=== PATIENT | female | born 1955 | race Caucasian/White ===

== ENCOUNTER 2021-06-12 00:36 | Inpatient (IN) ==
[2021-06-12] MEDS ORDERED: IPRATROPIUM/ALBUTEROL 3 ML AMPUL.NEB NEB ONE ×3 (01:32→04:56)
--- NOTE | 2021-06-12 01:35 | Emergency Department Note ---
HPI General Chief complaint: Shortness of Breath/Dyspnea Stated complaint: sob Time Seen by Provider: 06/12/21 00:56 Source: patient Mode of arrival: ambulatory Limitations: no limitations History of Present Illness HPI Narrative: Narrative: 66 yo F w/ h/o COPD, HTN, tobacco abuse p/w SOB. She reports a few days of increasing SOB, constant, worsened w/ exertion, no relation to position. This is accompanied by chills, productive cough, and malaise. Additionally she has had some nausea and diarrhea. She and several of her girl friends have recently all had the same Sx. She denies CP, immobilization, recent surgery. She does have some peripheral edema but states that this is not a new issue for her. She is no t on home O2. Related Data Home Medications Medication Instructions Recorded Confirmed Vitamin B-12 with folic acid PO DAILY 12/28/14 03/21/21 aspirin 81 mg tablet 81 mg PO QDAY 12/28/14 03/21/21 calcium carbonate 600 mg calcium 600 mg PO QDAY tab 12/28/14 03/21/21 (1,500 mg) tablet cholecalciferol (vitamin D3) 50 2,000 unit PO QDAY 12/28/14 03/21/21 mcg (2,000 unit) tablet coenzyme Q10 100 mg capsule 100 mg PO QDAY 12/28/14 03/21/21 fish,bora,flax oils-om3,6,9 #1 PO QDAY 12/28/14 03/21/21 mv,iron,min-folic acid-biotin 1 PO TID 12/28/14 03/21/21 ascorbic acid (vitamin C) 1,000 mg 1 g PO QDAY tab 08/14/19 03/21/21 tablet ascorbic acid 7.5 mg-vit E 7.5 tab PO 08/14/19 03/21/21 unit-biotin 1,250 mcg chewable tablet (Hair,Skin,Nails with Biotin) inositol hexaphosphate PO 08/14/19 03/21/21 lactobacillus combination no.9 4 4,000 mmu cells PO QDAY 08/14/19 03/21/21 billion cell capsule (Adult 50 Plus Probiotic) vit 55-iron fum,bisgly 28 1 tab PO QDAY 08/14/19 03/21/21 mg iron-folic acid 1 mg chew tablet (NataChew (Fe Bis-glycinate)) melatonin 3 mg tablet 6 mg PO QDAY 09/23/19 03/21/21 Previous Rx's Medication Instructions Recorded lisinopril 10 mg tablet 10 mg PO QDAY #90 tab 08/05/19 amitriptyline 100 mg tablet 100 mg PO QHS #90 tab 11/08/20 omeprazole 20 mg capsule,delayed 40 mg PO QDAY #180 cap 12/26/20 release gabapentin 800 mg tablet See Rx Instructions .ROUTE 03/08/21 .COMPLEX #180 tab duloxetine 30 mg capsule,delayed 30 mg PO BID #60 cap 03/21/21 release albuterol sulfate 90 mcg/actuation 2 puff INHALATION Q6H PRN #8.5 g 05/04/21 aerosol inhaler (ProAir HFA) oxycodone 10 mg tablet 10 mg PO Q4H 28 Days #168 tab 05/30/21 carisoprodol 350 mg tablet See Rx Instructions .ROUTE 06/01/21 .COMPLEX #60 tab Allergies Allergy/AdvReac Type Severity Reaction Status Date / Time adhesive tape Allergy Unknown Unknown Verified 03/21/21 13:54 hydromorphone [Hydromorphone] Allergy Unknown Unknown Verified 03/21/21 13:54 morphine Allergy Unknown Unknown Verified 03/21/21 13:54 NSAIDS (Non-Steroidal Allergy Unknown Unknown Verified 03/21/21 13:54 Anti-Inflamma Penicillins Allergy Unknown Unknown Verified 03/21/21 13:54 pentazocine Allergy Unknown Unknown Verified 03/21/21 13:54 Zolpidem Allergy Unknown Unknown Verified 03/21/21 13:54 bees Allergy Unknown Unknown Uncoded 03/21/21 13:54 Review of Systems ROS ROS Narrative: Narrative: All systems ED: reviewed and negative except as stated. [facility] Narrative Patient History Narrative: Narrative: Medical/Surgical/Family History All Active Problems (Updated 06/12/21 @ 07:16 by Arnaldo Cole MD) Acute dyspnea (Acute) Acute exacerbation of chronic obstructive airways disease (Acute) Medicare annual wellness visit, initial (Acute) History of appendectomy (Chronic ~09/12/19) Upper respiratory infection (Acute) Tobacco abuse (Chronic) Chronic pain (Chronic) Alcoholism in recovery (Chronic) Hypertension, essential (Chronic) Asthma (Chronic) Disc disorder of cervical region (Chronic) Cervical pain (neck) (Chronic) Chronic obstructive lung disease (Chronic) Gastric distention (Chronic) History of ileus (Chronic) Foraminal stenosis of lumbar region (Chronic) Pain management contract agreement (Chronic) Vitamin D deficiency (Chronic) Insomnia (Chronic) Depression (Chronic) Acid reflux (Chronic) Small intestine obstruction (Acute ~09/08/19) Back pain (Chronic) Bowel disease (Chronic) Migraine-cluster headache syndrome (Chronic) Chronic joint pain (Chronic) Anemia (Chronic) Medical History Acid reflux Alcoholism in recovery Allergic dermatitis Anemia as a child and after daughter was born Asthma Back pain 2007 Bowel disease 09/2014 Cervical pain (neck) Chronic joint pain Chronic obstructive lung disease Cigarette smoking history Chronic pain Depression Disc disorder of cervical region Foraminal stenosis of lumbar region L3-4, L4-5 Gastric distention 10/14/14 History of ileus 10/14/14 Small intestine Hypertension, essential 2007 Insomnia Medicare annual wellness visit, initial Migraine-cluster headache syndrome 2010 Pain management contract agreement 06/03/14 Pneumonia 05/08, 10/06 Small intestine obstruction (~09/08/19) 2015 Stomach ulcer in her early 's Tobacco abuse Upper respiratory infection Vitamin D deficiency Surgical History H/O neck surgery 08/2009 History of appendectomy (~09/12/19) History of back surgery 2012, 2018 History of intestinal surgery 10/15/2014 for small intestinal blockage Family History Mother Osteoarthritis Diabetes mellitus, Onset Age: 82 Essential hypertension Myocardial Infarction Disorder of thyroid Grandmother-maternal Malignant neoplasm of breast Grandmother Malignant neoplasm of lung, Onset Age: 85 Aunt-paternal Malignant neoplasm of pharynx Father Dementia Sister Migraine Social History Smoking Status: Current every day smoker Alcohol Intake Frequency: former alcohol drinker Exam Narrative Narrative: Narrative: General Limitations: no limitations General appearance: Present alert and in no apparent distress Head Head: Present atraumatic and normocephalic ENT ENT: Present normal oropharynx and mucous membranes moist Chest Chest: Present normal inspection and symmetric chest wall rise Respiratory Respiratory: Present decreased breath sounds; Absent respiratory distress or accessory muscle use Cardiovascular Cardiovascular: Present regular rate, normal rhythm, +S1, +S2 and other (2+ B/L radial pulses); Absent systolic murmur or diastolic murmur Adbominal Abdominal: Present soft and normal bowel sounds; Absent distention or tenderness Extremities Extremities: Present pedal edema (1+ B/L pitting) Neurological Neurological: Present alert and oriented X3 Psychiatric Psychiatric: Present normal affect Skin Skin: Present warm (WNL) and dry Course Vital Signs Vital signs: Vital Signs Temperature 97.9 F 06/12/21 00:40 Pulse Rate 93 H 06/12/21 00:40 Respiratory Rate 20 06/12/21 00:40 Blood Pressure 117/88 06/12/21 00:40 Temperature 97.9 F 06/12/21 00:40 Pulse Rate 87 06/12/21 07:00 Respiratory Rate 12 06/12/21 07:18 Blood Pressure 102/65 06/12/21 07:18 Pulse Oximetry (%) 97 06/12/21 07:00 [facility] MDM Narrative Medical decision making narrative: Narrative: 66 yo F w/ h/o COPD, HTN, tobacco abuse p/w SOB. DDx - PE, ACS, PTX, PNA, viral syndrome, COPD exacerbation She presented clinically stable, in NAD, but w/ hypoxia on RA. Her exam was notable for decreased air entry c/w COPD. She had no risk factors for PE, no tachycardia, and clinically I did not feel that D-dimer and CTA were indicated. I checked an ECG which showed no ischemia, and troponin was negative. She had no PTX or PNA on CXR, and COVID swab was negative. She made some improvement w/ nebs but required further doses and steroids and still we could not quite wean her off O2. Given the presence of COPD exacerbation w/ hypoxia I admitted her to the hospitalist service for ongoing care. Lab Data Result diagrams: 06/12/21 01:45 06/12/21 01:45 Labs: Lab Results 06/12/21 06/12/21 06/12/21 Range/Units 01:45 01:45 01:45 WBC 5.3 (4.5-11.0) K/mcL RBC 2.48 L (3.59-5.38) M/mcL Hgb 8.7 L (11.2-15.7) g/dL Hct 26.5 L (34.1-44.9) % MCV 106.9 H (80.0-100.0) fL MCH 35.1 H (26.0-34.0) pg MCHC 32.8 (31.0-36.0) g/dL RDW 16.4 H (11.5-14.5) % Plt Count 352 (140-440) K/mcL MPV 8.5 (7.4-10.4) fL Neut % (Auto) 63.6 (38.0-78.0) % Lymph % (Auto) 24.9 (15.5-49.0) % [place] % (Auto) 9.4 (1.0-12.0) % Eos % (Auto) 1.5 (0.0-7.0) % Baso % (Auto) 0.6 (0.0-2.0) % Lymph # (Auto) 1.33 L (1.50-4.80) K/mcL [place] # (Auto) 0.50 (0.10-0.90) K/mcL Eos # (Auto) 0.08 (0.00-0.70) K/mcL Baso # (Auto) 0.03 (0.00-0.30) K/mcL Absolute Neutrophils 3.40 (1.80-8.00) K/mcL VBG Lactic Acid 1.0 (0.5-2.0) mmol/L Sodium 137 (133-145) mmol/L Potassium 4.0 (3.3-5.1) mmol/L Chloride 99 (96-108) mmol/L Carbon Dioxide 27 (22-30) mmol/L Anion Gap 11.0 (8.0-16.0) BUN 10 (8-23) mg/dL Creatinine 1.0 (0.6-1.1) mg/dL GFR Calculation 59 Glucose 144 H (70-105) mg/dL Calcium 8.4 L (8.6-10.4) mg/dL Total Bilirubin < 0.2 (0.1-1.0) mg/dL AST 56 H (<32) U/L ALT 55 H (<40) U/L Alkaline Phosphatase 131 H (39-117) U/L Total Creatine Kinase 149 (24-170) U/L CK-MB (CK-2) 3.0 (<3.7) ng/mL Troponin T < 0.01 (<0.03) ng/mL NT-Pro-B Natriuret Pep (<125.0) pg/mL Total Protein 5.9 (5.9-8.4) gm/dL Albumin 3.6 (3.2-5.2) gm/dL Globulin 2.3 (2.2-3.7) gm/dL Albumin/Globulin Ratio 1.6 (1.0-2.3) 06/12/21 Range/Units 01:54 WBC (4.5-11.0) K/mcL RBC (3.59-5.38) M/mcL Hgb (11.2-15.7) g/dL Hct (34.1-44.9) % MCV (80.0-100.0) fL MCH (26.0-34.0) pg MCHC (31.0-36.0) g/dL RDW (11.5-14.5) % Plt Count (140-440) K/mcL MPV (7.4-10.4) fL Neut % (Auto) (38.0-78.0) % Lymph % (Auto) (15.5-49.0) % [place] % (Auto) (1.0-12.0) % Eos % (Auto) (0.0-7.0) % Baso % (Auto) (0.0-2.0) % Lymph # (Auto) (1.50-4.80) K/mcL [place] # (Auto) (0.10-0.90) K/mcL Eos # (Auto) (0.00-0.70) K/mcL Baso # (Auto) (0.00-0.30) K/mcL Absolute Neutrophils (1.80-8.00) K/mcL VBG Lactic Acid (0.5-2.0) mmol/L Sodium (133-145) mmol/L Potassium (3.3-5.1) mmol/L Chloride (96-108) mmol/L Carbon Dioxide (22-30) mmol/L Anion Gap (8.0-16.0) BUN (8-23) mg/dL Creatinine (0.6-1.1) mg/dL GFR Calculation Glucose (70-105) mg/dL Calcium (8.6-10.4) mg/dL Total Bilirubin (0.1-1.0) mg/dL AST (<32) U/L ALT (<40) U/L Alkaline Phosphatase (39-117) U/L Total Creatine Kinase (24-170) U/L CK-MB (CK-2) (<3.7) ng/mL Troponin T (<0.03) ng/mL NT-Pro-B Natriuret Pep 983.2 H (<125.0) pg/mL Total Protein (5.9-8.4) gm/dL Albumin (3.2-5.2) gm/dL Globulin (2.2-3.7) gm/dL Albumin/Globulin Ratio (1.0-2.3) ED POC Tests ED POC Tests: ZULAY - SARS Antigen Negative EKG Data EKG #1: EKG attestation: Yes I reviewed and interpreted this EKG. and Yes There are no EKG findings of acute coronary syndrome EKG results narrative: Sinus rate of 88 Normal VA, QRS, QT/QTc intervals No STEMI Similar to previous EKG Discharge Plan Patient/Caregiver Discharge Instructions Pt seen by TREAD BUILDER/PA only: No Clinical Impression: Acute dyspnea, Acute exacerbation of chronic obstructive airways disease Patient Disposition: Xfer As Inpt ([facility]) Condition: Fair Follow up with: Tre Patton PA-C [Primary Care Provider] - Prescriptions: No Action lisinopril 10 mg tablet 10 mg PO QDAY Qty: 90 1RF amitriptyline 100 mg tablet 100 mg PO QHS Qty: 90 3RF omeprazole 20 mg capsule,delayed release(DR/EC) 40 mg PO QDAY Qty: 180 3RF gabapentin 800 mg tablet See Rx Instructions .ROUTE .COMPLEX Qty: 180 1RF Dose Instruction: TAKE 1 TABLET BY MOUTH TWICE DAILY Rx Instructions: TAKE 1 TABLET BY MOUTH TWICE DAILY albuterol sulfate [ProAir HFA] 90 mcg/actuation HFA aerosol inhaler 2 puff inhalation Q6H PRN (Reason: cough, shortness of breath, wheezing) Qty: 8.5 2RF Rx Instructions: administer with spacer oxycodone 10 mg tablet 10 mg PO Q4H 28 Days Qty: 168 0RF carisoprodol 350 mg tablet See Rx Instructions .ROUTE .COMPLEX Qty: 60 0RF Dose Instruction: TAKE 1 TABLET BY MOUTH TWICE DAILY Rx Instructions: TAKE 1 TABLET BY MOUTH TWICE DAILY aspirin 81 mg tablet 81 mg PO QDAY 0RF calcium carbonate 600 mg (1,500 mg) tablet 600 mg PO QDAY 0RF coenzyme Q10 100 mg capsule 100 mg PO QDAY 0RF cholecalciferol (vitamin D3) 2,000 unit tablet 2,000 unit PO QDAY 0RF Triple [place] 3-6-9 PO QDAY 0RF Vitamin B-12 with folic acid PO DAILY 0RF Hair, Skin & Nails- Argan Oil 1 PO TID 0RF lactobacillus combination no.9 4 billion cell capsule 4 billion cell capsule 4,000 mmu cells PO QDAY 0RF ascorbic acid (vitamin C) 1,000 mg tablet 1 g PO QDAY 0RF vit 55-iron fum,bisgly 28 mg iron-folic acid 1 mg chew tablet 28 mg iron -1 mg tablet,chewable 1 tab PO QDAY 0RF inositol hexaphosphate 510 mg PO 0RF ascorbic acid 7.5 mg-vit E 7.5 unit-biotin 1,250 mcg chewable tablet 7.5-7.5-1,250 mg-unit-mcg tablet,chewable PO 0RF melatonin 3 mg tablet 6 mg PO QDAY 0RF duloxetine 30 mg capsule,delayed release(DR/EC) 30 mg PO BID Qty: 60 5RF
[2021-06-12 02:33] LABS: Basophils # (Auto) 0.03 K/mcL (0.00-0.30); Basophils % (Auto) 0.6 % (0.0-2.0); Eosinophils # (Auto) 0.08 K/mcL (0.00-0.70); Eosinophils % (Auto) 1.5 % (0.0-7.0); Hematocrit 26.5 % (34.1-44.9); Hemoglobin 8.7 g/dL (11.2-15.7); Lymphocytes # (Auto) 1.33 K/mcL (1.50-4.80); Lymphocytes % (Auto) 24.9 % (15.5-49.0); Mean Cell Volume 106.9 fL (80.0-100.0); Mean Corpuscular HGB Conc 32.8 g/dL (31.0-36.0); Mean Platelet Volume 8.5 fL (7.4-10.4); Monocytes % (Auto) 9.4 % (1.0-12.0); Neutrophils % (Auto) 63.6 % (38.0-78.0); Platelet Count 352 K/mcL (140-440); RBC 2.48 M/mcL (3.59-5.38); Red Cell Distribution Width 16.4 % (11.5-14.5); WBC 5.3 K/mcL (4.5-11.0)
[2021-06-12 02:59] LABS: proBNP 983.2 pg/mL (<125.0)
[2021-06-12 03:01] LABS: ALT/SGPT 55 U/L (<40); AST/SGOT 56 U/L (<32); Albumin 3.6 gm/dL (3.2-5.2); Albumin/Globulin Ratio 1.6 (1.0-2.3); Alkaline Phosphatase 131 U/L (39-117); Bilirubin,Total < 0.2 mg/dL (0.1-1.0); Blood Urea Nitrogen 10 mg/dL (8-23); Calcium 8.4 mg/dL (8.6-10.4); Carbon Dioxide 27 mmol/L (22-30); Chloride 99 mmol/L (96-108); Creatine Kinase 149 U/L (24-170); Globulin 2.3 gm/dL (2.2-3.7); Glomerular Filtration Rate 59; Glucose 144 mg/dL (70-105)
[2021-06-12] MEDS ORDERED: methylPREDNISolone SOD SUCC 125 MG/2 ML VIAL IV ONE (04:07)
--- NOTE | 2021-06-12 08:41 | XRay Report ---
HISTORY: Breath, chest pain FINDINGS: Subtle increased interstitial lung markings are present bilaterally. This is a chronic stable finding which may be due to chronic low level inflammation or interstitial fibrosis. Lung volumes are normal and not hyperinflated. There is no evidence of pneumonia, mass or congestive heart failure. The heart size, mediastinum and keesha are normal. There has been prior cervical fusion in the lower neck. Comparison with the prior exam from 02/09/19 shows little change. IMPRESSION: Subtle chronic interstitial lung disease and no acute abnormality Interpreted and Authenticated by: Rajan Hernandez 06/12/21
--- NOTE | 2021-06-12 09:31 | Internal Med History&Physical ---
HPI History of Present Illness Patient information: Note initiated : 06/12/21 at 9:20 am Service Date, if different from initiated Date: [] Patient: Ceci Torres a 66 y/o F admitted on for SOB . Chief Complaint: [] Chief complaint: shortness of breath History of present illness: Ms. Torres is a 66 year old F history of COPD, hypertension, depression, presenting with 3 days of gradual onset, gradually worsening shortness of breath with respiratory wheezing and nonproductive cough. Patient still smokes cigarettes 2 packs/day. Patient denies any sick contact or recent travel. Over the past 3 days, she is experiencing gradual onset, gradually worsening shortness of breath with respiratory wheezing and nonproductive cough. She denies any chest pain or palpitations. She denies any subjective fever, chills, or diaphoresis. She is still smoking cigarettes. Vital signs at ED presentation significant for oxygen desaturating to the 79% on room air. Labs cervical for lack of leukocytosis with WBC 5.3. Serum BNP is slightly elevated to 983. Covid Alejandra test negative. Confirmatory Pap test pending. Chest x-ray showing subtle chronic interstitial lung disease and no acute abnormalities. Constitutional Constitutional: Present weakness; Absent chills, excessive sweating, fatigue or fever(s) EENT Eyes: Absent blurry vision, change in vision, loss of vision or other visual disturbances Ears: Absent decreased hearing or tinnitus Nose, mouth and throat: Absent abnormal hearing, dry mouth, headache(s), nasal congestion or sore throat Cardiovascular Cardiovascular: Absent chest pain, chest pain at rest, edema, irregular heart rhythm or palpatations Respiratory Respiratory: Present cough, dyspnea and wheezing; Absent dyspnea on exertion or excessive phlegm production Gastrointestinal Gastrointestinal: Absent abdominal pain, constipation, diarrhea, nausea or vomiting Musculoskeletal Musculoskeletal: Absent back pain, deformity, limited range of motion, muscle cramps, muscle weakness or numbness Integumentary Integumentary: Absent lesions, rash or wounds Neurological Neurological: Absent focal weakness, headache(s) or numbness Psychiatric Psychiatric: Absent anxiety, depression or hallucinations PFSH PFSH All Active Problems (Updated 06/12/21 @ 09:26 by Clifton Rahman MD) Essential hypertension (Acute) Smoker (Acute) COPD exacerbation (Acute) Acute dyspnea (Acute) Acute exacerbation of chronic obstructive airways disease (Acute) Medicare annual wellness visit, initial (Acute) History of appendectomy (Chronic ~09/12/19) Upper respiratory infection (Acute) Tobacco abuse (Chronic) Chronic pain (Chronic) Alcoholism in recovery (Chronic) Hypertension, essential (Chronic) Asthma (Chronic) Disc disorder of cervical region (Chronic) Cervical pain (neck) (Chronic) Chronic obstructive lung disease (Chronic) Gastric distention (Chronic) History of ileus (Chronic) Foraminal stenosis of lumbar region (Chronic) Pain management contract agreement (Chronic) Vitamin D deficiency (Chronic) Insomnia (Chronic) Depression (Chronic) Acid reflux (Chronic) Small intestine obstruction (Acute ~09/08/19) Back pain (Chronic) Bowel disease (Chronic) Migraine-cluster headache syndrome (Chronic) Chronic joint pain (Chronic) Anemia (Chronic) Medical History Acid reflux Alcoholism in recovery Allergic dermatitis Anemia as a child and after daughter was born Asthma Back pain 2007 Bowel disease 09/2014 Cervical pain (neck) Chronic joint pain Chronic obstructive lung disease Cigarette smoking history Chronic pain Depression Disc disorder of cervical region Foraminal stenosis of lumbar region L3-4, L4-5 Gastric distention 10/14/14 History of ileus 10/14/14 Small intestine Hypertension, essential 2007 Insomnia Medicare annual wellness visit, initial Migraine-cluster headache syndrome 2010 Pain management contract agreement 06/03/14 Pneumonia 05/08, 10/06 Small intestine obstruction (~09/08/19) 2015 Stomach ulcer in her early 20's Tobacco abuse Upper respiratory infection Vitamin D deficiency Surgical History H/O neck surgery 08/2009 History of appendectomy (~09/12/19) History of back surgery 2012, 2018 History of intestinal surgery 10/15/2014 for small intestinal blockage Family History Mother Osteoarthritis Diabetes mellitus, Onset Age: 82 Essential hypertension Myocardial Infarction Disorder of thyroid Grandmother-maternal Malignant neoplasm of breast Grandmother Malignant neoplasm of lung, Onset Age: 85 Aunt-paternal Malignant neoplasm of pharynx Father Dementia Sister Migraine Social History marital status: occupational status: disabled other: Children-2 alcohol intake frequency: former alcohol drinker MEDS/ALLERGIES Home Medications and Allergies Home Medications Medication Instructions Recorded Confirmed Type Vitamin B-12 with folic acid PO DAILY 12/28/14 03/21/21 History aspirin 81 mg tablet 81 mg PO QDAY 12/28/14 03/21/21 History calcium carbonate 600 mg calcium 600 mg PO QDAY tab 12/28/14 03/21/21 History (1,500 mg) tablet cholecalciferol (vitamin D3) 50 2,000 unit PO QDAY 12/28/14 03/21/21 History mcg (2,000 unit) tablet coenzyme Q10 100 mg capsule 100 mg PO QDAY 12/28/14 03/21/21 History fish,bora,flax oils-om3,6,9 #1 PO QDAY 12/28/14 03/21/21 History mv,iron,min-folic acid-biotin 1 PO TID 12/28/14 03/21/21 History lisinopril 10 mg tablet 10 mg PO QDAY #90 tab 08/05/19 03/21/21 Rx ascorbic acid (vitamin C) 1,000 mg 1 g PO QDAY tab 08/14/19 03/21/21 History tablet ascorbic acid 7.5 mg-vit E 7.5 tab PO 08/14/19 03/21/21 History unit-biotin 1,250 mcg chewable tablet (Hair,Skin,Nails with Biotin) inositol hexaphosphate PO 08/14/19 03/21/21 History lactobacillus combination no.9 4 4,000 mmu cells PO QDAY 08/14/19 03/21/21 History billion cell capsule (Adult 50 Plus Probiotic) vit 55-iron fum,bisgly 28 1 tab PO QDAY 08/14/19 03/21/21 History mg iron-folic acid 1 mg chew tablet (NataChew (Fe Bis-glycinate)) melatonin 3 mg tablet 6 mg PO QDAY 09/23/19 03/21/21 History amitriptyline 100 mg tablet 100 mg PO QHS #90 tab 11/08/20 03/21/21 Rx omeprazole 20 mg capsule,delayed 40 mg PO QDAY #180 cap 12/26/20 03/21/21 Rx release gabapentin 800 mg tablet See Rx Instructions .ROUTE 03/08/21 03/21/21 Rx .COMPLEX #180 tab duloxetine 30 mg capsule,delayed 30 mg PO BID #60 cap 03/21/21 03/21/21 Rx release albuterol sulfate 90 mcg/actuation 2 puff INHALATION Q6H PRN #8.5 g 05/04/21 Rx aerosol inhaler (ProAir HFA) oxycodone 10 mg tablet 10 mg PO Q4H 28 Days #168 tab 05/30/21 Rx carisoprodol 350 mg tablet See Rx Instructions .ROUTE 06/01/21 Rx .COMPLEX #60 tab Allergies Allergy/AdvReac Type Severity Reaction Status Date / Time adhesive tape Allergy Unknown Unknown Verified 03/21/21 13:54 hydromorphone [Hydromorphone] Allergy Unknown Unknown Verified 03/21/21 13:54 morphine Allergy Unknown Unknown Verified 03/21/21 13:54 NSAIDS (Non-Steroidal Allergy Unknown Unknown Verified 03/21/21 13:54 Anti-Inflamma Penicillins Allergy Unknown Unknown Verified 03/21/21 13:54 pentazocine Allergy Unknown Unknown Verified 03/21/21 13:54 Zolpidem Allergy Unknown Unknown Verified 03/21/21 13:54 bees Allergy Unknown Unknown Uncoded 03/21/21 13:54 EXAM Constitutional Vitals: Temp Pulse Resp BP Pulse Ox 36.6 C 87 9 L 108/69 97 06/12/21 00:40 06/12/21 07:00 06/12/21 08:30 06/12/21 08:30 06/12/21 07:00 General appearance: cooperative and no acute distress Head Head exam: Present atraumatic and normocephalic Eye Eye exam: Present EOMI and PERRL ENT ENT exam: Present mucous membranes moist, normal exam and normal external ear exam Additional comments: Nasal cannula in place Neck Neck exam: Present normal inspection; Absent lymphadenopathy, tenderness or thyromegaly Respiratory Respiratory exam: Present decreased breath sounds; Absent accessory muscle use, respiratory distress or wheezes Cardiovascular Cardiovascular exam: Present normal rate and rhythm; Absent JVD GI/Abdominal GI/Abdominal exam: Present normal bowel sounds and soft; Absent organomegaly or tenderness Extremities Exam Extremities exam: Present full ROM, normal capillary refill and normal inspection; Absent tenderness Neurological Exam Neurological exam: Present alert, CN II-XII intact and oriented X3; Absent motor sensory deficit Psychiatric Psychiatric exam: Present normal affect and normal mood; Absent anxious or depressed Skin Skin exam: Present dry and intact DATA Data Completed and Pending Labs: Labs from last 24 hours 06/12/21 06/12/21 06/12/21 01:54 01:45 01:45 WBC RBC Hgb Hct MCV MCH MCHC RDW Plt Count MPV Neut % (Auto) Lymph % (Auto) [place] % (Auto) Eos % (Auto) Baso % (Auto) Lymph # (Auto) [place] # (Auto) Eos # (Auto) Baso # (Auto) Absolute Neutrophils VBG Lactic Acid 1.0 Sodium 137 Potassium 4.0 Chloride 99 Carbon Dioxide 27 Anion Gap 11.0 BUN 10 Creatinine 1.0 GFR Calculation 59 Glucose 144 H Calcium 8.4 L Total Bilirubin < 0.2 AST 56 H ALT 55 H Alkaline Phosphatase 131 H Total Creatine Kinase 149 CK-MB (CK-2) 3.0 Troponin T < 0.01 NT-Pro-B Natriuret Pep 983.2 H Total Protein 5.9 Albumin 3.6 Globulin 2.3 Albumin/Globulin Ratio 1.6 06/12/21 01:45 WBC 5.3 RBC 2.48 L Hgb 8.7 L Hct 26.5 L MCV 106.9 H MCH 35.1 H MCHC 32.8 RDW 16.4 H Plt Count 352 MPV 8.5 Neut % (Auto) 63.6 Lymph % (Auto) 24.9 [place] % (Auto) 9.4 Eos % (Auto) 1.5 Baso % (Auto) 0.6 Lymph # (Auto) 1.33 L [place] # (Auto) 0.50 Eos # (Auto) 0.08 Baso # (Auto) 0.03 Absolute Neutrophils 3.40 VBG Lactic Acid Sodium Potassium Chloride Carbon Dioxide Anion Gap BUN Creatinine GFR Calculation Glucose Calcium Total Bilirubin AST ALT Alkaline Phosphatase Total Creatine Kinase CK-MB (CK-2) Troponin T NT-Pro-B Natriuret Pep Total Protein Albumin Globulin Albumin/Globulin Ratio A/P Assessment and plan (1) COPD exacerbation: Status: Acute (2) Smoker: Status: Acute (3) Anemia: Status: Chronic Comment: as a child and after daughter was born Qualifiers: Anemia type: iron deficiency Iron deficiency anemia type: other iron deficiency Qualified Code(s): D50.8 - Other iron deficiency anemias (4) Back pain: Status: Chronic Comment: 2007 Qualifiers: Back pain location: low back pain Back pain laterality: bilateral Sciatica presence: with sciatica Sciatica laterality: sciatica of left side Qualified Code(s): M54.42 - Lumbago with sciatica, left side (5) Depression: Status: Chronic Qualifiers: Depression Type: major depressive disorder Major depression recurrence: recurrent Active/Remission status: remission status unspecified Qualified Code(s): F33.9 - Major depressive disorder, recurrent, unspecified (6) Essential hypertension: Status: Acute Narrative A/P Narrative: Assessment and Plans: 1. COPD exacerbation: Inpatient med surg [place] test pending Supplemental oxygen therapy titrate to achieve spo2>=88%, currently on 3L/min Prednisone DuoNEB NEB+ Albuterol INH PRN wheezing Azithromycin Robitussin DM PRN cough 2. Essential HTN: Lisinopril 3. Depression: Amitriptyline Duloxetine 4. Anemia, hyperchromic macrocytic: cbc w/ auto diff daily to trend H/H 5. 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 Chronic lower back pain: Oxycodone PRN back pain GI ppx: Omeprazole DVT ppx: Lovenox Code status: Full Prognosis: guarded Disposition: inpatient med surg Time Spent With Patient Time: Total time spent is greater than 50% in coordination of care (as documented) at patient's floor/unit and/or counseling patient: Total time spent with greater than 50% in coordination of care (as documented) at patient's floor/unit and/or counseling patient:: 50 - 70 minutes
[2021-06-12] MEDS ORDERED: ALBUTEROL SULFATE 200 PUFF INHALER INH PRN (10:17)
[2021-06-12] MEDS ORDERED: ACETAMINOPHEN 325 MG TABLET PO PRN (10:17)
[2021-06-12] MEDS ORDERED: ONDANSETRON 4 MG/2 ML VIAL IV PRN (10:17)
[2021-06-12] MEDS ORDERED: guaiFENesin/DEXTROMETHORPHAN ORAL SOL PO PRN (10:17)
[2021-06-12] MEDS: IPRATROPIUM/ALBUTEROL 3 ML AMPUL.NEB NEB SCH ×4 (10:30→23:05)
[2021-06-12] MEDS ORDERED: DULoxetine 30 MG CAPSULE PO STA (11:37)
[2021-06-12] MEDS ORDERED: GABAPENTIN 400 MG CAPSULE PO ONE (11:39)
[2021-06-12] MEDS ORDERED: CARISOPRODOL 350 MG TABLET PO ONE ×2 (11:39→11:41)
[2021-06-12] MEDS: predniSONE 20 MG TABLET PO SCH (11:58)
[2021-06-12] MEDS: oxyCODONE HCL 5 MG TABLET PO PRN ×3 (11:59→22:06)
--- NOTE | 2021-06-12 13:37 | EKG ---
[facility] Test Date: 2021-06-12 Pat Name: Ceci Torres Department: ED Room: Gender: Female Director Of Emergency Nursing: AW : 1955 Requested By: Arnaldo Cole Order Number: [id number] Reading MD: Ana Leal D.O. Measurements Intervals [place] Rate: 88 P: 75 NE: 175 QRS: 56 QRSD: 94 T: 42 QT: 353 QTc: 427 Interpretive Statements Sinus rhythm Low voltage, extremity and precordial leads Electronically Signed On 06-12-2021 13:37:16 PDT by Ana Leal D.O. /store/[email or web address]/[id number]
[2021-06-12] MEDS: 0.9 % SODIUM CHLORIDE 10 ML SYRINGE IV SCH ×2 (18:17→20:38)
[2021-06-12] MEDS: DOCUSATE SODIUM 100 MG CAPSULE PO SCH (20:36)
[2021-06-12] MEDS: CARISOPRODOL 350 MG TABLET PO SCH (20:36)
[2021-06-12] MEDS: DULoxetine 30 MG CAPSULE PO SCH (20:36)
[2021-06-12] MEDS ORDERED: GABAPENTIN 400 MG CAPSULE PO SCH (21:00)
[2021-06-12] MEDS ORDERED: SENNOSIDES 1 TABLET PO SCH (21:00)
[2021-06-12] MEDS ORDERED: AMITRIPTYLINE 25 MG TABLET PO SCH (21:00)
[2021-06-12] MEDS ORDERED: MELATONIN 3 MG TABLET PO SCH (21:00)
[2021-06-13] MEDS: IPRATROPIUM/ALBUTEROL 3 ML AMPUL.NEB NEB SCH ×3 (03:03→11:47)
[2021-06-13] MEDS: 0.9 % SODIUM CHLORIDE 10 ML SYRINGE IV SCH ×2 (06:10→15:03)
[2021-06-13 07:04] LABS: Basophils # (Auto) 0.03 K/mcL (0.00-0.30); Basophils % (Auto) 0.4 % (0.0-2.0); Eosinophils # (Auto) 0.03 K/mcL (0.00-0.70); Eosinophils % (Auto) 0.4 % (0.0-7.0); Hematocrit 27.4 % (34.1-44.9); Hemoglobin 8.8 g/dL (11.2-15.7); Lymphocytes % (Auto) 22.6 % (15.5-49.0); Mean Cell Volume 107.9 fL (80.0-100.0); Mean Corpuscular HGB Conc 32.1 g/dL (31.0-36.0); Mean Platelet Volume 8.7 fL (7.4-10.4); Monocytes # (Auto) 0.69 K/mcL (0.10-0.90); Monocytes % (Auto) 8.2 % (1.0-12.0); Neutrophils % (Auto) 68.4 % (38.0-78.0); Platelet Count 412 K/mcL (140-440); RBC 2.54 M/mcL (3.59-5.38); Red Cell Distribution Width 16.7 % (11.5-14.5); WBC 8.4 K/mcL (4.5-11.0)
[2021-06-13 07:22] LABS: ALT/SGPT 39 U/L (<40); AST/SGOT 23 U/L (<32); Albumin 3.5 gm/dL (3.2-5.2); Albumin/Globulin Ratio 1.8 (1.0-2.3); Alkaline Phosphatase 121 U/L (39-117); Bilirubin,Total < 0.2 mg/dL (0.1-1.0); Blood Urea Nitrogen 12 mg/dL (8-23); Calcium 8.4 mg/dL (8.6-10.4); Carbon Dioxide 29 mmol/L (22-30); Chloride 102 mmol/L (96-108); Glomerular Filtration Rate 77; Glucose 94 mg/dL (70-105); Phosphorous 3.5 mg/dL (2.5-4.5)
[2021-06-13] MEDS: predniSONE 20 MG TABLET PO SCH (08:51)
[2021-06-13] MEDS: DOCUSATE SODIUM 100 MG CAPSULE PO SCH (08:52)
[2021-06-13] MEDS: CARISOPRODOL 350 MG TABLET PO SCH (08:52)
[2021-06-13] MEDS: DULoxetine 30 MG CAPSULE PO SCH (08:52)
[2021-06-13] MEDS ORDERED: VITAMIN D3 25 MCG TABLET PO SCH (09:00)
[2021-06-13] MEDS ORDERED: ASPIRIN 81 MG TAB.CHEW PO SCH (09:00)
[2021-06-13] MEDS ORDERED: CALCIUM (OYSTER SHELL) 500 MG TABLET PO SCH (09:00)
[2021-06-13] MEDS ORDERED: AZITHROMYCIN 250 MG TABLET PO SCH (09:00)
[2021-06-13] MEDS ORDERED: ASCORBIC ACID 500 MG TABLET PO SCH (09:00)
[2021-06-13] MEDS ORDERED: LACTOBACILLUS 1 CAPSULE PO SCH (09:00)
[2021-06-13] MEDS ORDERED: PRENATAL VIT/IRON FUMARATE/FA 1 TAB TABLET PO SCH (09:00)
[2021-06-13] MEDS ORDERED: ENOXAPARIN 40 MG/0.4 ML SYRINGE SQ SCH (09:00)
[2021-06-13] MEDS ORDERED: LISINOPRIL 10 MG TABLET PO SCH (09:00)
[2021-06-13] MEDS ORDERED: OMEPRAZOLE 20 MG CAPSULE PO SCH (09:00)
[2021-06-13] MEDS: oxyCODONE HCL 5 MG TABLET PO PRN ×2 (09:03→15:02)
--- NOTE | 2021-06-13 13:02 | Discharge Summary ---
Discharge Provider Provider Patient information: Note initiated : 06/13/21 at 12:58 pm Service Date, if different from initiated Date: [] Patient: Ceci Torres 66 y/o F admitted on 06/12/21 for SOB . Chief Complaint: [] Date of admission: 06/12/21 09:59 Discharge date: 06/13/21 Primary care physician: Tre Patton PA-C Attending physician on admission: Clifton Rahman Consults: 06/12/21 Consult to Physician [CONS] Stat Comment: Consulting Provider: Clifton Rahman Reason For Exam: Physician to Consult Attending physician on discharge: Clifton Rahman Discharge Meds Discharge Medications Home Medications Vitamin B-12 with folic acid 1 tab PO DAILY 12/28/14 [History Confirmed 06/12/21 Last Taken Unknown] aspirin 81 mg tablet 81 mg PO QDAY 12/28/14 [History Confirmed 06/12/21 Last Taken Unknown] calcium carbonate 600 mg calcium (1,500 mg) tablet 600 mg PO QDAY tab 12/28/14 [History Confirmed 06/12/21 Last Taken Unknown] cholecalciferol (vitamin D3) 50 mcg (2,000 unit) tablet 2,000 unit PO QDAY 12/28/14 [History Confirmed 06/12/21 Last Taken Unknown] coenzyme Q10 100 mg capsule 100 mg PO QDAY 12/28/14 [History Confirmed 06/12/21 Last Taken Unknown] fish,bora,flax oils-om3,6,9 #1 1 tab PO QDAY 12/28/14 [History Confirmed 06/12/21 Last Taken Unknown] ascorbic acid (vitamin C) 1,000 mg tablet 1 g PO QDAY tab 08/14/19 [History Confirmed 06/12/21 Last Taken Unknown] vit 55-iron fum,bisgly 28 mg iron-folic acid 1 mg chew tablet (NataChew (Fe Bis-glycinate)) 1 tab PO QDAY 08/14/19 [History Confirmed 06/12/21 Last Taken Unknown] melatonin 3 mg tablet 6 mg PO HS 09/23/19 [History Confirmed 06/12/21 Last Taken Unknown] amitriptyline 100 mg tablet 100 mg PO QHS #90 tab 11/08/20 [Rx Confirmed 06/12/21 Last Taken Unknown] omeprazole 20 mg capsule,delayed release 40 mg PO QDAY #180 cap 12/26/20 [Rx Confirmed 06/12/21 Last Taken Unknown] gabapentin 800 mg tablet See Rx Instructions .ROUTE .COMPLEX #180 tab 03/08/21 [Rx Confirmed 06/12/21 Last Taken Unknown] duloxetine 30 mg capsule,delayed release 30 mg PO BID #60 cap 03/21/21 [Rx Confirmed 06/12/21 Last Taken Unknown] albuterol sulfate 90 mcg/actuation aerosol inhaler (ProAir HFA) 2 puff INHALATION Q6H PRN #8.5 g 05/04/21 [Rx Confirmed 06/12/21 Last Taken Unknown] oxycodone 10 mg tablet 10 mg PO Q4H 28 Days #168 tab 05/30/21 [Rx Confirmed 06/12/21 Last Taken Unknown] carisoprodol 350 mg tablet See Rx Instructions .ROUTE .COMPLEX #60 tab 06/01/21 [Rx Confirmed 06/12/21 Last Taken Unknown] azithromycin 250 mg tablet 250 mg PO DAILY 4 Days tab 06/13/21 [Rx Last Taken Unknown] dextromethorphan-guaifenesin 10 mg-100 mg/5 mL oral liquid (Robafen DM Cough) 10 ml PO Q4HP PRN #250 ml 06/13/21 [Rx Last Taken Unknown] ipratropium 0.5 mg-albuterol 3 mg (2.5 mg base)/3 mL nebulization soln 3 ml INHALATION Q6H PRN #90 ml 06/13/21 [Rx Last Taken Unknown] prednisone 20 mg tablet 40 mg PO QAC #3 tab 06/13/21 [Rx Last Taken Unknown] COURSE Hospital Course Hospital course: Ms. Torres is a 66 year old F history of COPD, hypertension, depression, presenting with 3 days of gradual onset, gradually worsening shortness of breath with respiratory wheezing and nonproductive cough. Patient still smokes cigarettes 2 packs/day. Patient denies any sick contact or recent travel. Over the past 3 days, she is experiencing gradual onset, gradually worsening shortness of breath with respiratory wheezing and nonproductive cough. She denies any chest pain or palpitations. She denies any subjective fever, chills, or diaphoresis. She is still smoking cigarettes. Vital signs at ED presentation significant for oxygen desaturating to the 79% on room air. Labs cervical for lack of leukocytosis with WBC 5.3. Serum BNP is slightly elevated to 983. Covid Alejandra test negative. Confirmatory Pap test pending. Chest x-ray showing subtle chronic interstitial lung disease and no acute abnormalities. 06/13: Patient is tolerating room air with oxygen saturations running between 89 to 90%. Afebrile overnight. Symptoms of shortness of breath greatly improved relative to yesterday. Patient improved quicker than expectations and reached clinical stability. As such, the decision was made to discharge patient home with prescriptions of nebulizer machine, azithromycin, prednisone, and bronch odilators given to her and sent to pharmacy, respectively. 1 to 2 weeks PCP appointment made for the patient. All questions were answered prior to patient being physically discharged. Discharge diagnosis: COPD exacerbation Time Spent with Patient Time attestation: Total time spent providing and/or coordinating discharge services: Time spent: Less than 30 minutes EXAM Constitutional Vitals: Temp Pulse Resp BP Pulse Ox 36.3 C 84 14 120/71 96 06/13/21 08:00 06/13/21 11:47 06/13/21 11:47 06/13/21 08:31 06/13/21 11:47 General appearance: cooperative and no acute distress Head Head exam: Present atraumatic and normocephalic Eye Eye exam: Present EOMI and PERRL ENT ENT exam: Present mucous membranes moist, normal exam and normal external ear exam Neck Neck exam: Present normal inspection; Absent lymphadenopathy, tenderness or thyromegaly Respiratory Respiratory exam: Present decreased breath sounds; Absent accessory muscle use, respiratory distress, rhonchi or wheezes Cardiovascular Cardiovascular exam: Present normal rate and rhythm; Absent JVD GI/Abdominal GI/Abdominal exam: Present normal bowel sounds and soft; Absent organomegaly or tenderness Extremities Exam Extremities exam: Present full ROM, normal capillary refill and normal inspection; Absent tenderness Neurological Exam Neurological exam: Present alert, CN II-XII intact and oriented X3; Absent motor sensory deficit Psychiatric Psychiatric exam: Present normal affect and normal mood; Absent anxious or depressed Skin Skin exam: Present dry and intact Discharge Data Data Completed and Pending Labs on day of discharge: Labs from last 24 hours 06/13/21 06/13/21 05:12 05:12 WBC 8.4 RBC 2.54 L Hgb 8.8 L Hct 27.4 L MCV 107.9 H MCH 34.6 H MCHC 32.1 RDW 16.7 H Plt Count 412 MPV 8.7 Neut % (Auto) 68.4 Lymph % (Auto) 22.6 [place] % (Auto) 8.2 Eos % (Auto) 0.4 Baso % (Auto) 0.4 Lymph # (Auto) 1.90 [place] # (Auto) 0.69 Eos # (Auto) 0.03 Baso # (Auto) 0.03 Absolute Neutrophils 5.75 Sodium 137 Potassium 3.8 Chloride 102 Carbon Dioxide 29 Anion Gap 6.0 L BUN 12 Creatinine 0.8 GFR Calculation 77 Glucose 94 Calcium 8.4 L Phosphorus 3.5 Magnesium 2.1 Total Bilirubin < 0.2 AST 23 ALT 39 Alkaline Phosphatase 121 H Total Protein 5.5 L Albumin 3.5 Globulin 2.0 L Albumin/Globulin Ratio 1.8 Preliminary micro results at discharge 06/12/21 01:45 Blood Culture - Preliminary Blood 06/12/21 01:40 Blood Culture - Preliminary Blood Discharge Plan Patient/Caregiver Discharge Instructions Activity: increase activity as tolerated Diet: Regular Diet Prescriptions: New azithromycin 250 mg Tablet 250 mg PO DAILY 4 Days 0RF dextromethorphan-guaifenesin [Robafen DM Cough] 10-100 mg/5 mL Liquid 10 ml PO Q4HP PRN (Reason: Cough) Qty: 250 0RF prednisone 20 mg Tablet [facility] [place] [facility]: 3 0RF ipratropium-albuterol 0.5 mg-3 mg(2.5 mg base)/3 mL solution for nebulization 3 ml inhalation Q6H PRN (Reason: shortness of breath or wheezing) Qty: 90 0RF Continued amitriptyline 100 mg tablet 100 mg PO QHS Qty: 90 3RF omeprazole 20 mg capsule,delayed release(DR/EC) 40 mg PO QDAY Qty: 180 3RF gabapentin 800 mg tablet See Rx Instructions .ROUTE .COMPLEX Qty: 180 1RF Dose Instruction: TAKE 1 TABLET BY MOUTH TWICE DAILY Rx Instructions: TAKE 1 TABLET BY MOUTH TWICE DAILY albuterol sulfate [ProAir HFA] 90 mcg/actuation HFA aerosol inhaler 2 puff inhalation Q6H PRN (Reason: cough, shortness of breath, wheezing) Qty: 8.5 2RF Rx Instructions: administer with spacer oxycodone 10 mg tablet 10 mg PO Q4H 28 Days Qty: 168 0RF carisoprodol 350 mg tablet See Rx Instructions .ROUTE .COMPLEX Qty: 60 0RF Dose Instruction: TAKE 1 TABLET BY MOUTH TWICE DAILY Rx Instructions: TAKE 1 TABLET BY MOUTH TWICE DAILY aspirin 81 mg tablet 81 mg PO QDAY 0RF calcium carbonate 600 mg (1,500 mg) tablet 600 mg PO QDAY 0RF coenzyme Q10 100 mg capsule 100 mg PO QDAY 0RF cholecalciferol (vitamin D3) 2,000 unit tablet 2,000 unit PO QDAY 0RF [place] 3-6-9 1 tab PO QDAY 0RF Vitamin B-12 with folic acid 1 tab PO DAILY 0RF ascorbic acid (vitamin C) 1,000 mg tablet 1 g PO QDAY 0RF vit 55-iron fum,bisgly 28 mg iron-folic acid 1 mg chew tablet 28 mg iron -1 mg tablet,chewable 1 tab PO QDAY 0RF melatonin 3 mg tablet 6 mg PO HS 0RF duloxetine 30 mg capsule,delayed release(DR/EC) 30 mg PO BID Qty: 60 5RF Follow Up Plan Follow up with: Tre Patton PA-C [Primary Care Provider] - Patient Disposition: Home, Self-Care Prognosis: Fair Rehab Potential: Good I certify that the patient requires SNF services: No Overall status at discharge: patient is progressing back to baseline Discharge Orders: Discharge Order (Routine); Ordered 06/13/21 Ordered By: Clifton CORONEL VTE Deep Vein Thrombosis/Pulmonary Embolism Present on Admission: No
== END 2021-06-13 15:10 | disposition home or self-care (01) | DRG 191 ==
LOC: ED 00:36 → MEDSUR 09:59
PROVIDERS: ADMIT Internal Medicine; ATTEND Internal Medicine